=== PATIENT | male | born 1990 | race Caucasian/White ===

== ENCOUNTER 2020-10-16 16:29 | Inpatient (IN) | payer BC ==
[~2020-10-16] VITALS: Ht 182.9 cm; Wt 143.0 kg
[2020-10-16 17:20] LABS: BASOPHILS PERCENT AUTO 0 % (0-2); EOSINOPHILS PERCENT AUTO 0 % (0-6); Hematocrit 41.4 % (37.0-53.0); Hemoglobin 14.8 g/dL (13.5-17.5); IMMATURE GRAN ABSOLUTE AUTO 0.02 K/mm3 (0.00-0.10); IMMATURE GRAN PERCENT AUTO 1 % (0-1); LYMPHOCYTES ABSOLUTE AUTO 0.79 K/mm3 (0.84-5.20); LYMPHOCYTES PERCENT AUTO 24 % (21-46); MONOCYTES ABSOLUTE AUTO 0.42 K/mm3 (0.16-1.47); MONOCYTES PERCENT AUTO 13 % (4-13); Mean Corpuscular HGB 28.9 pg (26.0-34.0); Mean Corpuscular HGB Conc 35.7 g/dL (31.5-36.5); Mean Corpuscular Volume 81 fL (80-100); Mean Platelet Volume 9.6 fL (9.1-12.4); NEUTROPHILS ABSOLUTE AUTO 2.04 K/mm3 (1.96-9.15); NEUTROPHILS PERCENT AUTO 62 % (41-73); Platelet Count 178 K/mm3 (150-400); RDW Coefficient Variation 12.5 % (11.7-14.2); Red Blood Cell Count 5.12 M/mm3 (4.30-5.90); White Blood Cell Count 3.27 K/mm3 (4.00-11.30)
[2020-10-16 17:49] LABS: Alanine Aminotransfer (ALT/SGP 123 U/L (12-78); Albumin/Globulin Ratio 0.7 (0.8-1.8); Alk Phos 41 U/L (50-136); Anion Gap 7 mmol/L (6-16); Aspartate Aminotrans (AST/SGOT 155 U/L (12-37); Bilirubin, Total 0.4 mg/dL (0.1-1.0); Blood Urea Nitrogen 13 mg/dL (8-24); Bun/Creatinine Ratio 12.5 (12.0-20.0); CO2, Blood 23 mmol/L (21-32); Calcium, Blood 8.4 mg/dL (8.5-10.1); Chloride, Blood 104 mmol/L (98-108); Creatinine, Blood 1.04 mg/dL (0.60-1.20); Globulin, Blood 4.4 g/dL (2.2-4.0); Glomerular Filtration Rate >60 (60-); Glucose, Blood 175 mg/dL (70-99); Potassium, Blood 3.2 mmol/L (3.5-5.5); Sodium, Blood 134 mmol/L (136-145); Total Protein, Blood 7.4 g/dL (6.4-8.2)
--- NOTE | 2020-10-17 01:30 | NUR ---
PT TO PCU ROOM VIA [facility] FROM ER. PT REPORTS NEEDING TO USE BRP FOR BM - PT REPORTS LOOSE YELLOW BM. PT IS ALERT AND ORIENTED. LS CLEAR, BUT DIM THROUGHOUT ON 3L O2. CONTINUOUS BIOX ON OUTSIDE OF ROOM. PT DENIES ANY PAIN. PT REPORTS MILD NAUSEA, EMESIS YESTERDAY, LIQUID STOOLS, POOR APPETITE, AND WEAKNESS. ORIENTED TO ROOM, CALL LIGHT, EQUIPMENT. PT DOES NOT HAVE A PCP. PT REPORTS HE RARELY MONITORS HIS BLOOD SUGAR. PT LOST HIS INSURANCE LAST YEAR WHEN COVID BEGAN. PT WAS TAKING BENICAR, AMLODIPINE, ATENOLOL, AND HCTZ - BUT REPORTS HE QUIT TAKING THESE APPX 6 MONTHS AGO. CALL LIGHT WITHIN REACH. PT IS NPO. TOOTHETTE PROVIDED. OVERBED TABLE WITHIN REACH.
[2020-10-17 01:38] LABS: BASOPHILS PERCENT AUTO 0 % (0-2); EOSINOPHILS PERCENT AUTO 0 % (0-6); Hemoglobin 13.8 g/dL (13.5-17.5); IMMATURE GRAN ABSOLUTE AUTO 0.02 K/mm3 (0.00-0.10); IMMATURE GRAN PERCENT AUTO 1 % (0-1); LYMPHOCYTES ABSOLUTE AUTO 0.78 K/mm3 (0.84-5.20); LYMPHOCYTES PERCENT AUTO 25 % (21-46); MONOCYTES ABSOLUTE AUTO 0.42 K/mm3 (0.16-1.47); MONOCYTES PERCENT AUTO 13 % (4-13); Mean Corpuscular HGB 28.7 pg (26.0-34.0); Mean Corpuscular HGB Conc 35.4 g/dL (31.5-36.5); Mean Corpuscular Volume 81 fL (80-100); Mean Platelet Volume 9.4 fL (9.1-12.4); NEUTROPHILS ABSOLUTE AUTO 1.95 K/mm3 (1.96-9.15); NEUTROPHILS PERCENT AUTO 62 % (41-73); Platelet Count 174 K/mm3 (150-400); RDW Coefficient Variation 12.5 % (11.7-14.2); RDW Standard Deviation 37.2 fL (35.1-46.3); Red Blood Cell Count 4.81 M/mm3 (4.30-5.90); White Blood Cell Count 3.17 K/mm3 (4.00-11.30)
[2020-10-17 01:56] LABS: Alanine Aminotransfer (ALT/SGP 113 U/L (12-78); Albumin, Blood 2.8 g/dL (3.4-5.0); Albumin/Globulin Ratio 0.7 (0.8-1.8); Alk Phos 39 U/L (50-136); Anion Gap 9 mmol/L (6-16); Aspartate Aminotrans (AST/SGOT 140 U/L (12-37); Bilirubin, Total 0.4 mg/dL (0.1-1.0); Blood Urea Nitrogen 14 mg/dL (8-24); Bun/Creatinine Ratio 12.5 (12.0-20.0); CO2, Blood 23 mmol/L (21-32); Calcium, Blood 8.2 mg/dL (8.5-10.1); Chloride, Blood 104 mmol/L (98-108); Creatinine, Blood 1.12 mg/dL (0.60-1.20); Glomerular Filtration Rate >60 (60-); Glucose, Blood 150 mg/dL (70-99); Potassium, Blood 3.2 mmol/L (3.5-5.5); Sodium, Blood 136 mmol/L (136-145); Total Protein, Blood 6.8 g/dL (6.4-8.2)
--- NOTE | 2020-10-17 06:50 | NUR ---
SHIFT SUMMARY - PT CONTINUES ON 3L O2 VIA NC. PO FLUIDS AT BEDSIDE. NO ACUTE CHANGES SINCE ADMIT LAST NOC. PT HAS HAD EPISODES WHEN HE GETS TACHYPNIC, BUT CALMS HIMSELF DOWN WITH SLOW DEEP BREATHS. SATS MAINTAINED THROUGHOUT THE NIGHT ON 3L O2 NC. PT REPORTS HE HAS BEEN COUGHING UP GREEN, ALVAREZ SPUTUM - NOT VISUALIZED. PT WAS VAPING, BUT REPORTS HE HAS NOW QUIT. CALL LIGHT WITHIN REACH. BED IN LOW POSITION. PT IN LOW SEMI FOWLERS POSITION IN BED. ICE WATER AT BEDSIDE.
--- NOTE | 2020-10-17 12:05 | NUR ---
PT ALERT AND ORIENTED, INDEPENDENT IN ROOM. ON 3 L VIA NASAL CANNULA. REPORT GIVEN TO BHARGAV MALONE ON MEDICAL.
--- NOTE | 2020-10-17 18:08 | NUR ---
SHIFT SUMMARY. PCU TRANSFER TO MEDICAL FLOOR TODAY. A&OX4, INDEPENDENT IN ROOM, PLEASANT AND COOPERATIVE WITH CARE. CONTINUES WITH 3L O2 NC. REPORTS BREATHING AND APPETITE HAS IMPROVED SINCE ADMISSION. NO OTHER CHANGES OR CONCERNS.
--- NOTE | 2020-10-18 05:48 | NUR ---
SHIFT SUMMARY PATIENT ALERT AND ORIENTED. NO COMPLAINTS OF PAIN. REPORTS SHORTNESS OF BREATH UPON EXHERTION. CONTINUES ON 3 LITERS O2 VIA NASAL CANULA. IV PATENT AND FLUSHED. BED IN LOWEST POSITION WITH WHEELS LOCKED. CALL LIGHT WITHIN REACH. REPORT GIVEN TO ONCOMING RN.
[2020-10-18 07:38] LABS: BASOPHILS ABSOLUTE AUTO 0.01 K/mm3 (0.00-0.23); BASOPHILS PERCENT AUTO 0 % (0-2); EOSINOPHILS PERCENT AUTO 0 % (0-6); Hemoglobin 14.6 g/dL (13.5-17.5); IMMATURE GRAN ABSOLUTE AUTO 0.02 K/mm3 (0.00-0.10); IMMATURE GRAN PERCENT AUTO 0 % (0-1); LYMPHOCYTES ABSOLUTE AUTO 1.07 K/mm3 (0.84-5.20); LYMPHOCYTES PERCENT AUTO 20 % (21-46); MONOCYTES ABSOLUTE AUTO 0.83 K/mm3 (0.16-1.47); MONOCYTES PERCENT AUTO 16 % (4-13); Mean Corpuscular HGB 28.3 pg (26.0-34.0); Mean Corpuscular HGB Conc 34.8 g/dL (31.5-36.5); Mean Corpuscular Volume 81 fL (80-100); Mean Platelet Volume 9.3 fL (9.1-12.4); NEUTROPHILS ABSOLUTE AUTO 3.33 K/mm3 (1.96-9.15); NEUTROPHILS PERCENT AUTO 63 % (41-73); Platelet Count 248 K/mm3 (150-400); RDW Coefficient Variation 12.6 % (11.7-14.2); RDW Standard Deviation 37.7 fL (35.1-46.3); Red Blood Cell Count 5.16 M/mm3 (4.30-5.90); White Blood Cell Count 5.26 K/mm3 (4.00-11.30)
[2020-10-18 07:55] LABS: Alanine Aminotransfer (ALT/SGP 117 U/L (12-78); Albumin, Blood 2.9 g/dL (3.4-5.0); Albumin/Globulin Ratio 0.7 (0.8-1.8); Alk Phos 39 U/L (50-136); Anion Gap 9 mmol/L (6-16); Aspartate Aminotrans (AST/SGOT 103 U/L (12-37); Bilirubin, Total 0.4 mg/dL (0.1-1.0); Blood Urea Nitrogen 20 mg/dL (8-24); Bun/Creatinine Ratio 19.6 (12.0-20.0); CO2, Blood 24 mmol/L (21-32); Calcium, Blood 8.6 mg/dL (8.5-10.1); Chloride, Blood 105 mmol/L (98-108); Creatinine, Blood 1.02 mg/dL (0.60-1.20); Globulin, Blood 4.3 g/dL (2.2-4.0); Glomerular Filtration Rate >60 (60-); Glucose, Blood 190 mg/dL (70-99); Potassium, Blood 3.4 mmol/L (3.5-5.5); Sodium, Blood 138 mmol/L (136-145); Total Protein, Blood 7.2 g/dL (6.4-8.2)
--- NOTE | 2020-10-18 17:44 | NUR ---
SHIFT SUMMARY. PT CONTINUES WITH 2.5-3L O2, ATTEMPTED TO TITRATE O2 DOWN TO 2L BUT SPO2 REDUCED TO 88%. PT WITH HTN THIS AM, PRN APPRESOLINE GIVEN WITH GOOD EFFECT, DR. LARSON NOTIFIED AND ORDERS RECEIEVED TO START PT ON DAILY [place]. PT DENIES PAIN, N/V. PT REQUESTED DIET BE ADVANCED TO FULL LIQUIDS TODAY, PT TOLERATED WELL. NO OTHER CHANGES OR CONCERNS.
--- NOTE | 2020-10-19 00:11 | NUR ---
MACHINE TOOL DRESSER Sinpu called to discuss BG 362, no order for more insulin beyond 5 units given SQ . PT on steroid for covid 19.
--- NOTE | 2020-10-19 02:42 | NUR ---
PT on Bioxx alarmed when oxygen fell off sat 87 88, 91 2.5 l NC. advanced diet to ADA in AM. Denies nausea or acute pain. Covid 19 positive otther Family members Hospitalized.
[2020-10-19 05:29] LABS: BASOPHILS ABSOLUTE AUTO 0.01 K/mm3 (0.00-0.23); BASOPHILS PERCENT AUTO 0 % (0-2); EOSINOPHILS PERCENT AUTO 0 % (0-6); Hematocrit 40.8 % (37.0-53.0); Hemoglobin 14.3 g/dL (13.5-17.5); IMMATURE GRAN ABSOLUTE AUTO 0.04 K/mm3 (0.00-0.10); IMMATURE GRAN PERCENT AUTO 1 % (0-1); LYMPHOCYTES ABSOLUTE AUTO 0.95 K/mm3 (0.84-5.20); LYMPHOCYTES PERCENT AUTO 16 % (21-46); MONOCYTES ABSOLUTE AUTO 0.98 K/mm3 (0.16-1.47); MONOCYTES PERCENT AUTO 16 % (4-13); Mean Corpuscular Volume 83 fL (80-100); Mean Platelet Volume 9.3 fL (9.1-12.4); NEUTROPHILS ABSOLUTE AUTO 4.07 K/mm3 (1.96-9.15); NEUTROPHILS PERCENT AUTO 67 % (41-73); Platelet Count 264 K/mm3 (150-400); RDW Coefficient Variation 12.7 % (11.7-14.2); RDW Standard Deviation 38.3 fL (35.1-46.3); Red Blood Cell Count 4.93 M/mm3 (4.30-5.90); White Blood Cell Count 6.05 K/mm3 (4.00-11.30)
[2020-10-19 05:52] LABS: Alanine Aminotransfer (ALT/SGP 110 U/L (12-78); Albumin, Blood 2.9 g/dL (3.4-5.0); Albumin/Globulin Ratio 0.7 (0.8-1.8); Alk Phos 39 U/L (50-136); Anion Gap 7 mmol/L (6-16); Aspartate Aminotrans (AST/SGOT 58 U/L (12-37); Bilirubin, Total 0.4 mg/dL (0.1-1.0); Blood Urea Nitrogen 22 mg/dL (8-24); Bun/Creatinine Ratio 24.3 (12.0-20.0); CO2, Blood 25 mmol/L (21-32); Calcium, Blood 8.9 mg/dL (8.5-10.1); Chloride, Blood 104 mmol/L (98-108); Creatinine, Blood 0.91 mg/dL (0.60-1.20); Globulin, Blood 4.3 g/dL (2.2-4.0); Glomerular Filtration Rate >60 (60-); Glucose, Blood 243 mg/dL (70-99); Potassium, Blood 3.5 mmol/L (3.5-5.5); Sodium, Blood 136 mmol/L (136-145); Total Protein, Blood 7.2 g/dL (6.4-8.2)
--- NOTE | 2020-10-19 19:26 | NUR ---
PT ALERT AND ORIENTED X4, RESTING IN BED MAKING NO COMPLAINTS AT THIS TIME. NO ACUTE CHANGES NOTED THIS SHIFT. LUNGS REMAIN DIM AN ALL AREAS. PT REMAINS MED AND CAREPLAN COMPLIANT WELL IND. IN ROOM. STAFF WILL CONTINUE TO MONITOR FOR CHANGES.
[2020-10-19] MEDS ORDERED: ACET500 PO (23:15)
[2020-10-20 06:33] LABS: BASOPHILS ABSOLUTE AUTO 0.01 K/mm3 (0.00-0.23); BASOPHILS PERCENT AUTO 0 % (0-2); EOSINOPHILS ABSOLUTE AUTO 0.01 K/mm3 (0.00-0.68); EOSINOPHILS PERCENT AUTO 0 % (0-6); Hematocrit 39.8 % (37.0-53.0); Hemoglobin 13.9 g/dL (13.5-17.5); IMMATURE GRAN ABSOLUTE AUTO 0.08 K/mm3 (0.00-0.10); IMMATURE GRAN PERCENT AUTO 1 % (0-1); LYMPHOCYTES ABSOLUTE AUTO 1.29 K/mm3 (0.84-5.20); LYMPHOCYTES PERCENT AUTO 13 % (21-46); MONOCYTES ABSOLUTE AUTO 1.42 K/mm3 (0.16-1.47); MONOCYTES PERCENT AUTO 14 % (4-13); Mean Corpuscular HGB 28.7 pg (26.0-34.0); Mean Corpuscular HGB Conc 34.9 g/dL (31.5-36.5); Mean Corpuscular Volume 82 fL (80-100); Mean Platelet Volume 9.1 fL (9.1-12.4); NEUTROPHILS ABSOLUTE AUTO 7.38 K/mm3 (1.96-9.15); NEUTROPHILS PERCENT AUTO 72 % (41-73); Platelet Count 318 K/mm3 (150-400); RDW Coefficient Variation 12.4 % (11.7-14.2); RDW Standard Deviation 37.4 fL (35.1-46.3); Red Blood Cell Count 4.84 M/mm3 (4.30-5.90); White Blood Cell Count 10.19 K/mm3 (4.00-11.30)
[2020-10-20 07:12] LABS: Alanine Aminotransfer (ALT/SGP 95 U/L (12-78); Albumin, Blood 2.8 g/dL (3.4-5.0); Albumin/Globulin Ratio 0.7 (0.8-1.8); Alk Phos 39 U/L (50-136); Anion Gap 6 mmol/L (6-16); Aspartate Aminotrans (AST/SGOT 37 U/L (12-37); Bilirubin, Total 0.4 mg/dL (0.1-1.0); Blood Urea Nitrogen 24 mg/dL (8-24); Bun/Creatinine Ratio 24.4 (12.0-20.0); CO2, Blood 25 mmol/L (21-32); Calcium, Blood 8.5 mg/dL (8.5-10.1); Chloride, Blood 103 mmol/L (98-108); Creatinine, Blood 0.98 mg/dL (0.60-1.20); Globulin, Blood 4.2 g/dL (2.2-4.0); Glomerular Filtration Rate >60 (60-); Glucose, Blood 299 mg/dL (70-99); Potassium, Blood 3.6 mmol/L (3.5-5.5); Sodium, Blood 134 mmol/L (136-145)
[2020-10-20] MEDS ORDERED: METHYLPRED DP4 MG PO (15:19)
[2020-10-20] MEDS ORDERED: INSULANPEN SC (15:21)
[2020-10-20] MEDS ORDERED: XARELTO10 M1 PO (15:21)
[2020-10-20] MEDS ORDERED: LOSA50 PO (15:22)
[2020-10-20] MEDS ORDERED: MELA3 PO (15:22)
[2020-10-20] MEDS ORDERED: ASCO500 PO (15:22)
[2020-10-20] MEDS ORDERED: AMLO10 PO (15:22)
[2020-10-20] MEDS ORDERED: PIOG30 PO (15:23)
[2020-10-20] MEDS ORDERED: GALZIN25 MG PO (15:23)
--- NOTE | 2020-10-20 18:04 | NUR ---
DISCHARGE INSTRUCTIONS COMPLETED AND DISCUSSED WITH PT EXPRESSING UNDERSTANDING. SCRIPTS, AND DIABETIC SUPPLIES FAXED/ORDERED FROM [facility]. PT GIVEN INSTRUCTION ON HOW TO GIVE HIMSELF AN INSULIN INJECTION. DID GIVE HIMSELF DINNERTIME INSULIN. ABLE TO VERBALIZE STEPS FOR PREPPING PEN AND THEN GIVING HIMSELF INSULIN. TO CURB VIA W/C WITH PICKING HIIM UP.
== END 2020-10-20 18:05 | disposition home or self-care (01) | DRG 177 ==
LOC: ER 16:29 → PCU 10-17 00:59 → MEDS 10-17 12:21
PROVIDERS: Family Medicine; Physician Assistant; ADMIT Internal Medicine
PROC: 8E0ZXY6 Isolation (ICD-10-PCS; principal; 2020-10-17)
PROC: XW033E5 Introduction of Remdesivir Anti-infective into Peripheral Vein, Percutaneous Approach, New Technology Group 5 (ICD-10-PCS; 2020-10-17)
PROC: 3E0333Z Introduction of Anti-inflammatory into Peripheral Vein, Percutaneous Approach (ICD-10-PCS; 2020-10-17)
DX: U07.1 COVID-19 (principal); J12.82 Pneumonia due to coronavirus disease 2019; J96.01 Acute respiratory failure with hypoxia; Q61.3 Polycystic kidney, unspecified; I10 Essential (primary) hypertension; E87.6 Hypokalemia; K76.0 Fatty (change of) liver, not elsewhere classified; E66.01 Morbid (severe) obesity due to excess calories; E11.9 Type 2 diabetes mellitus without complications; A08.4 Viral intestinal infection, unspecified; E66.9 Obesity, unspecified; Z68.38 Body mass index [BMI] 38.0-38.9, adult
CPT/HCPCS: 36415; 71045; 76705; 80053; 82947; 83036; 83605; 83880; 85025; 94761; 94762; 99285-25; A9270; J0360; J1100; J1650; J3480; J7030; M0243; Q0243

== ENCOUNTER 2023-04-07 14:51 | Emergency (ER) | payer OTHER ==
[~2023-04-07] VITALS: Ht 185.4 cm; Wt 136.1 kg
[~2023-04-07 14:51] MED LIST: ACET500 PO; AMLO10 PO; ASCO500 PO; GALZIN25 MG PO; INSULANPEN SC; LOSA50 PO; MELA3 PO; METHYLPRED DP4 MG PO; PIOG30 PO; XARELTO10 M1 PO
[2023-04-07 16:12] LABS: BASOPHILS ABSOLUTE AUTO 0.05 K/mm3 (0.00-0.23); BASOPHILS PERCENT AUTO 0 % (0-2); EOSINOPHILS PERCENT AUTO 0 % (0-6); Hematocrit 46.3 % (37.0-53.0); Hemoglobin 16.5 g/dL (13.5-17.5); IMMATURE GRAN ABSOLUTE AUTO 0.04 K/mm3 (0.00-0.10); IMMATURE GRAN PERCENT AUTO 0 % (0-1); LYMPHOCYTES ABSOLUTE AUTO 1.35 K/mm3 (0.84-5.20); LYMPHOCYTES PERCENT AUTO 11 % (21-46); MONOCYTES ABSOLUTE AUTO 0.74 K/mm3 (0.16-1.47); MONOCYTES PERCENT AUTO 6 % (4-13); Mean Corpuscular HGB 30.3 pg (26.0-34.0); Mean Corpuscular HGB Conc 35.6 g/dL (31.5-36.5); Mean Corpuscular Volume 85 fL (80-100); Mean Platelet Volume 9.7 fL (9.1-12.4); NEUTROPHILS ABSOLUTE AUTO 10.17 K/mm3 (1.96-9.15); NEUTROPHILS PERCENT AUTO 82 % (41-73); Platelet Count 286 K/mm3 (150-400); RDW Coefficient Variation 12.1 % (11.7-14.2); RDW Standard Deviation 37.5 fL (35.1-46.3); Red Blood Cell Count 5.44 M/mm3 (4.30-5.90); White Blood Cell Count 12.35 K/mm3 (4.00-11.30)
[2023-04-07 16:35] LABS: Albumin, Blood 4.5 g/dL (3.4-5.0); Albumin/Globulin Ratio 1.2 (0.8-1.8); Bun/Creatinine Ratio 13.1 (12.0-20.0); Calcium, Blood 10.2 mg/dL (8.5-10.1); Creatinine, Blood 1.6 mg/dL (0.60-1.20); Globulin, Blood 3.9 g/dL (2.2-4.0); Total Protein, Blood 8.4 g/dL (6.4-8.2)
[2023-04-07 21:15] VITALS: BP 160/90
[2023-04-07] MEDS ORDERED: ONDA4ODT MM (21:25)
[2023-04-07] MEDS ORDERED: DICY20 PO (21:25)
== END 2023-04-07 21:42 | disposition home or self-care (01) ==
LOC: ER 14:51
PROVIDERS: Student in an Organized Health Care Education/Training Program
DX: K29.70 Gastritis, unspecified, without bleeding (principal); Z79.899 Other long term (current) drug therapy; Z79.4 Long term (current) use of insulin; I10 Essential (primary) hypertension; E11.9 Type 2 diabetes mellitus without complications
CPT/HCPCS: 74177; 80053; 83690; 85025; 93005; 93010; 96361; 96372-59; 96374-59; 96375; 99284-25; A9270; J0500; J1885; J2270; J2405; J7030; Q9967